=== PATIENT | female | born 1995 | race Asian ===

== ENCOUNTER 2016-03-17 14:05 | Outpatient (CLI) | payer MEDICAID | END 2016-03-17 14:06 | disposition home or self-care (01) | DX: Z36 Encounter for antenatal screening of mother (principal) ==

== ENCOUNTER 2016-04-01 14:52 | Outpatient (CLI) | payer MEDICAID | END 2016-04-01 23:59 | disposition home or self-care (01) | DX: Z11.3 Encounter for screening for infections with a predominantly sexual mode of transmission (principal); Z36 Encounter for antenatal screening of mother ==

== ENCOUNTER 2016-04-02 09:46 | Outpatient (CLI) | payer MEDICAID | END 2016-04-02 09:47 | disposition home or self-care (01) | DX: Z11.3 Encounter for screening for infections with a predominantly sexual mode of transmission (principal); Z36 Encounter for antenatal screening of mother ==

== ENCOUNTER 2016-05-06 07:51 | Outpatient (CLI) | payer MEDICAID | END 2016-05-06 07:52 | disposition home or self-care (01) | DX: Z36 Encounter for antenatal screening of mother (principal) ==

== ENCOUNTER 2016-06-06 14:01 | Outpatient (CLI) | payer MEDICAID | END 2016-06-06 14:02 | DX: Z36 Encounter for antenatal screening of mother (principal) ==

== ENCOUNTER 2016-07-30 08:00 | Outpatient (CLI) | payer MEDICAID | END 2016-07-30 08:01 | disposition home or self-care (01) | LOC: LAB.R 08:00 | PROVIDERS: ATTEND Obstetrics & Gynecology | DX: Z34.83 Encounter for supervision of other normal pregnancy, third trimester (principal); Z36 Encounter for antenatal screening of mother | CPT/HCPCS: 87081 ==

== ENCOUNTER 2016-08-18 14:52 | Outpatient (CLI) | payer MEDICAID ==
[2016-08-18 15:32] LABS: BASOPHILS % (AUTO) 0.5 %; EOSINOPHILS # (AUTO) 0.2 10^3/uL (0.0-0.7); EOSINOPHILS % (AUTO) 2.1 %; HCT - HEMATOCRIT 35.9 % (37.0-47.0); HGB - HEMOGLOBIN 12.6 g/dL (12.0-16.0); LYMPHOCYTES # (AUTO) 1.4 10^3/uL (1.5-3.5); LYMPHOCYTES % (AUTO) 15.7 %; MEAN CORPUSCULAR HEMOGLOBIN 30.2 pg (27.0-31.0); MEAN CORPUSCULAR VOLUME 86.3 fL (81.0-99.0); MEAN PLATELET VOLUME 9.9 fL (7.9-10.8); MONOCYTES # (AUTO) 0.7 10^3/uL (0.0-1.0); MONOCYTES % (AUTO) 7.7 %; NEUTROPHILS # (AUTO) 6.4 10^3/uL (1.5-6.6); NUCLEATED RED BLOOD CELLS AUTO 0.1 /100WBC; RED BLOOD COUNT 4.16 10^6/uL (4.20-5.40); RED CELL DISTRIBUTION WIDTH 13.1 % (12.0-15.0); UNCORRECTED WHITE BLOOD COUNT 8.6 x10^3/uL; WHITE BLOOD COUNT 8.6 x10^3/uL (4.8-10.8)
[2016-08-18 15:54] VITALS: BP 141/92
== END 2016-08-18 15:50 | disposition home or self-care (01) ==
LOC: WFO 14:52 → OB 14:54 → WFO 15:50
PROVIDERS: ATTEND Obstetrics & Gynecology
DX: O10.913 Unspecified pre-existing hypertension complicating pregnancy, third trimester (principal); Z3A.38 38 weeks gestation of pregnancy
CPT/HCPCS: 36415; 59025; 85025; 86850; 86900; 86901

== ENCOUNTER 2017-08-03 08:00 | Outpatient (CLI) | payer MEDICAID | END 2017-08-03 08:01 | disposition home or self-care (01) | LOC: LAB.R 08:00 | PROVIDERS: ATTEND Obstetrics & Gynecology | DX: Z11.3 Encounter for screening for infections with a predominantly sexual mode of transmission (principal) | CPT/HCPCS: 87491; 87591 ==

== ENCOUNTER 2018-05-23 08:00 | Outpatient (CLI) | payer MEDICAID ==
[2018-05-23 19:23] LABS: BASOPHILS % (AUTO) 0.6 %; EOSINOPHILS # (AUTO) 0.4 10^3/uL (0.0-0.7); EOSINOPHILS % (AUTO) 6.2 %; HGB - HEMOGLOBIN 14.3 g/dL (12.0-16.0); LYMPHOCYTES # (AUTO) 1.4 10^3/uL (1.5-3.5); LYMPHOCYTES % (AUTO) 23.6 %; MEAN CORPUSCULAR HEMOGLOBIN 30.3 pg (27.0-31.0); MEAN CORPUSCULAR HGB CONC 33.9 g/dL (32.0-36.0); MEAN CORPUSCULAR VOLUME 89.3 fL (81.0-99.0); MEAN PLATELET VOLUME 9.1 fL (7.9-10.8); MONOCYTES # (AUTO) 0.6 10^3/uL (0.0-1.0); MONOCYTES % (AUTO) 9.8 %; NEUTROPHILS # (AUTO) 3.6 10^3/uL (1.5-6.6); NEUTROPHILS % (AUTO) 59.8 %; PLT - PLATELET COUNT 232 10^3/uL (130-450); RED BLOOD COUNT 4.72 10^6/uL (4.20-5.40); RED CELL DISTRIBUTION WIDTH 12.7 % (12.0-15.0); WHITE BLOOD COUNT 5.9 x10^3/uL (4.8-10.8)
[2018-05-23 19:31] LABS: ALBUMIN 4.8 g/dL (3.2-5.5); ALBUMIN/GLOBULIN RATIO 1.4 (1.0-2.2); BILIRUBIN,TOTAL 0.8 mg/dL (0.2-1.0); CALCIUM 8.7 mg/dL (8.5-10.3); CREATININE 0.7 mg/dL (0.4-1.0); TOTAL PROTEIN 8.2 g/dL (6.7-8.2)
[2018-05-23 19:44] LABS: THYROID STIMULATING HORMONE 1.37 uIU/mL (0.34-5.60)
[2018-05-23 19:57] LABS: FOLATE 16.42 ng/mL (5.90 - >24.8)
== END 2018-05-23 23:59 | disposition home or self-care (01) ==
LOC: LAB.N 08:00
PROVIDERS: ATTEND Nurse Practitioner
DX: R53.83 Other fatigue (principal); L83 Acanthosis nigricans; E55.9 Vitamin D deficiency, unspecified
CPT/HCPCS: 36415; 80050; 82306; 82607; 82746

== ENCOUNTER 2020-04-13 07:00 | Outpatient (CLI) | payer MEDICAID ==
--- NOTE | 2020-04-14 10:53 | XRAY Report ---
PROCEDURE: Knee 3 View LT INDICATIONS: L KNEE PX TECHNIQUE: 3 views of the knee(s) were acquired. COMPARISON: None. FINDINGS: Bones: No fractures or dislocations. No suspicious bony lesions. Note is made of no visualized pato dence of osseous trauma, Soft tissues: No joint effusion. No suspicious soft tissue calcifications. IMPRESSION: Source of knee pain is not seen. Depending on the clinical status follow-up by MR scanni ng may become necessary. Reviewed by: Mc Milian MD on 04/14/2020 10:51 AM [facility] Approved by: Mc Milian MD on 04/14/2020 10:51 AM [facility] Station ID: [id number]
== END 2020-04-13 23:59 | disposition home or self-care (01) ==
LOC: DI.N 07:00
PROVIDERS: ATTEND Family Medicine
DX: M25.562 Pain in left knee (principal)

== ENCOUNTER 2020-11-02 14:45 | Emergency (ER) | payer MEDICAID ==
[2020-11-02 14:53] VITALS: BP 140/85
[2020-11-02] MEDS ORDERED: TETANUS/DIPHTHERIA/PERTUSSIS 0.5 ML SYRINGE IM ONE (15:36)
[2020-11-02] MEDS ORDERED: IBUPROFEN 800 MG TABLET PO STA (16:34)
[2020-11-02] MEDS ORDERED: BACITRACIN ZINC OINT 1 PACKET TOP STA (16:34)
[2020-11-02] MEDS ORDERED: cephALEXin 250 MG CAPSULE PO STA (16:34)
--- NOTE | 2020-11-02 16:40 | ED Physician Documentation ---
PD HPI UPPER EXT INJURY - Stated complaint Stated Complaint: RT HAND LAC - Chief complaint Chief Complaint: Laceration - History obtained from History obtained from: Patient - History of Present Illness Location: Right, Finger (thumb) Where injury occurred: Home Timing - onset: How many hours ago (20) Timing - duration: Hours (20) Timing - details: Abrupt onset Pain level max: 4 Pain level now: 3 Improved by: Rest Worsened by: Moving, Palpating Contributing factors: No: Anticoagulated Recently seen: Not recently seen Review of Systems Constitutional: denies: Fever, Chills GI: denies: Vomiting Skin: denies: Rash Musculoskeletal: denies: Neck pain, Back pain Neurologic: denies: Headache PD PAST MEDICAL HISTORY - Past Medical History Past Medical History: No - Past Surgical History Past Surgical History: No - Present Medications Home Medications: Ambulatory Orders Medication Instructions Recorded Confirmed Ibuprofen [Motrin] 800 mg PO Q8H PRN #30 tablet 11/02/20 cephALEXin [Keflex] 500 mg PO Q6H #28 cap 11/02/20 - Allergies Allergies/Adverse Reactions: Allergies Allergy/AdvReac Type Severity Reaction Status Date / Time No Known Drug Allergies Allergy Verified 11/02/20 14:49 - Living Situation Living Arrangement: reports: At home - Social History Smoking Status: Former smoker PD ED PE NORMAL - Vitals Vital signs reviewed: Yes - General General: Alert and oriented X 3, No acute distress - HEENT HEENT: Moist mucous membranes - Neck Neck: Supple, no meningeal sign - Derm Derm: Warm and dry - Extremities Extremities: Other (R thumb - laceration on pad of thumb. no active bleeding. NVI. ) - Neuro Neuro: Alert and oriented X 3 - Psych Psych: Normal mood, Normal affect Results - Vitals Vitals: Oxygen O2 Source Room air PD MEDICAL DECISION MAKING - ED course Complexity details: considered differential, d/w patient ED course: R thumb laceration for the past 20 hours. concern for infection if closing now. will treat with secondary intention. will place on abx. Warnings of infection and instructions on wound care given at bedside. Also counseled on how to minimize scarring. Patient counseled regarding signs and symptoms for which I believe and urgent re-evaluation would be necessary. Patient with good understanding of and agreement to plan and is comfortable going home at this time Departure - Departure Disposition: 01 Home, Self Care Clinical Impression: Finger laceration Qualifiers: Encounter type: initial encounter Finger: thumb Damage to nail status: without damage Foreign body presence: without foreign body Laterality: right Qualified Code(s): S61.011A - Laceration without foreign body of right thumb without damage to nail, initial encounter Condition: Good Instructions: ED Laceration Hand Follow-Up: return,here in 3-4 days for wound check. [Other] Prescriptions: cephALEXin [Keflex] 500 mg PO Q6H #28 cap Ibuprofen [Motrin] 800 mg PO Q8H PRN #30 tablet PRN Reason: PAIN &/OR FEVER Comments: Your prescriptions were sent to [facility] in [place]. Please follow-up with your doctor in 3 to 4 days for a wound check, otherwise return here for a wound check. Because of the length of time since the injury, we will need to allow this to heal on its own. Keep the wound clean. Discharge Date/Time: 11/02/20 16:49
== END 2020-11-02 16:49 | disposition home or self-care (01) ==
LOC: ED 14:45
DX: S61.011A Laceration without foreign body of right thumb without damage to nail, initial encounter (principal); W26.8XXA Contact with other sharp object(s), not elsewhere classified, initial encounter; Y92.009 Unspecified place in unspecified non-institutional (private) residence as the place of occurrence of the external cause
CPT/HCPCS: 99282; 99283

== ENCOUNTER 2022-02-13 23:47 | Outpatient (CLI) | payer MEDICAID | END 2022-02-13 23:48 | disposition EMS.NT | LOC: EMS 23:47 | DX: Z03.89 Encounter for observation for other suspected diseases and conditions ruled out (principal) ==